=== PATIENT | female | born 1950 | race Hispanic/Latino ===

== ENCOUNTER 2016-08-28 18:35 | Emergency (ER) | payer MEDICARE, OTHER ==
[2016-08-28 18:40] VITALS: PULSE 83; RESP 16; TEMP 97; O2SAT 100
[2016-08-28] MEDS ORDERED: TDAP Vaccine 0.5 mL Syr IM ONE (19:08)
--- NOTE | 2016-08-28 19:11 | ED PDOC ---
HPI: Trauma/Fall - HPI Time Seen by Provider: 08/28/16 18:40 Chief Complaint (Nursing): Trauma Chief Complaint (Provider): fall History Per: Patient History/Exam Limitations: no limitations Injury Occurred (Timing): Just Before Arrival Additional Complaint(s): Ewa Hurtado is a 66 year old female who presents to the ED with complaints of facial pain and abrasion s/p trip and fall prior to arrival. Pt reports she was walking in her backyard and tripped on the pavement falling face first. Patient denies dizziness or syncope prior to fall. Pt denies any loss of consciousness. No associated dizziness, nausea, vomiting, vision changes since time of fall. Pt reports pain to the nasal bridge with abrasion. Pt is unsure of last tetanus vaccine. PMD: Augusto Mccarthy MD Past Medical History Reviewed: Historical Data, Nursing Documentation, Vital Signs Vital Signs: Last Vital Signs Temp 97.0 F L 08/28/16 18:37 Pulse 83 08/28/16 18:37 Resp 16 08/28/16 18:37 BP 150/78 08/28/16 20:42 Pulse Ox 100 08/28/16 21:22 - Medical History PMH: Hypercholesterolemia - Surgical History Surgical History: No Surg Hx - Family History Family History: States: No Known Family Hx - Living Arrangements Living Arrangements: With Family - Social History Current smoker - smoking cessation education provided: No Alcohol: None Drugs: Denies - Allergies Allergies/Adverse Reactions: Allergies Allergy/AdvReac Type Severity Reaction Status Date / Time No Known Allergies Allergy Verified 08/28/16 19:08 Review of Systems ROS Statement: Except As Marked, All Systems Reviewed And Found Negative Eyes: Negative for: Vision Change Cardiovascular: Negative for: Chest Pain Respiratory: Negative for: Shortness of Breath Gastrointestinal: Negative for: Nausea, Vomiting Musculoskeletal: Negative for: Neck Pain, Back Pain Skin: Positive for: Other (facial abrasion) Neurological: Positive for: Other (facial and head injury with no LOC). Negative for: Headache Physical Exam - Reviewed Nursing Documentation Reviewed: Yes Vital Signs Reviewed: Yes - Physical Exam Appears: Positive for: Well, Non-toxic, No Acute Distress Head Exam: Positive for: ATRAUMATIC, NORMAL INSPECTION, NORMOCEPHALIC Skin: Positive for: Normal Color, Warm, Dry Eye Exam: Positive for: Normal appearance, EOMI, PERRL, Periorbital tenderness ( mild bilaterally with no palpable bony deformity). Negative for: Nystagmus, Conjunctival injection ENT: Positive for: Other (1 cm superficial abrasion to proximal nasal bridge with surrounding tenderness and swelling) Neck: Positive for: Painless ROM Cardiovascular/Chest: Positive for: Regular Rate, Rhythm Respiratory: Positive for: Normal Breath Sounds Back: Negative for: L CVA Tenderness, R CVA Tenderness, Vertebral Tenderness Extremity: Positive for: Normal ROM. Negative for: Pedal Edema Neurologic/Psych: Positive for: Alert, Oriented, Gait (steady) - ECG O2 Sat by Pulse Oximetry: 100 (RA) Pulse Ox Interpretation: Normal - Other Rad CT head and facial bones X-Ray: Read By Radiologist X-Ray Interpretation: no intracranial pathology, no facial fracture Medical Decision Making Medical Decision Makin66 year old with head and facial injury s/p trip and fall, No LOC. Initial Plan: * CT head w/o contrast * CT maxillofacial w/o contrast * Tetanus booster * Pain meds declined Patient aware of CT results, all questions answered. Procedure note: Abrasion to the proximal nasal bridge was cleansed with normal saline and Betadine, Dermabond was used to approximate wound edges, good wound approximation was achieved, closure was reinforced with Steri-Strips. Neuro/ vascular intact status post placement of Steri-Strips. Procedure tolerated well by patient with no complications. Patient was given wound care instructions. Advised Tylenol as needed for pain. Patient was advised to follow-up in one to 2 days with primary doctor and is aware she can return to ED any time if acutely worse. Scribe Attestation: Documented by Gilda Funes, acting as a scribe for Lisa Baker PA-C. Provider Scribe Attestation: All medical record entries made by the Scribe were at my direction and personally dictated by me. I have reviewed the chart and agree that the record accurately reflects my personal performance of the history, physical exam, medical decision making, and the department course for this patient. I have also personally directed, reviewed, and agree with the discharge instructions and disposition. Disposition - Clinical Impression Clinical Impression: Facial contusion, Facial abrasion, Need for tetanus booster, Head injury - Patient ED Disposition Is Patient to be Admitted: No Counseled Patient/Family Regarding: Studies Performed, Diagnosis, Need For Followup - Disposition Referrals: Augusto Mccarthy MD [Staff Provider] - Disposition: Routine/Home Disposition Time: 20:40 Condition: STABLE Additional Instructions: Keep wound clean and dry, allow Steri-Strips and glue to flake off on their own. Tylenol for pain as needed. Ice affected areas much as possible. Follow-up in one to 2 days with primary doctor or return to ED at any time if acutely worse. Instructions: Head Injury (ED), Abrasion (ED), Facial Contusion (ED)
--- NOTE | 2016-08-28 20:15 | CT ---
EXAM: CT Head Without Intravenous Contrast CLINICAL HISTORY: 66 years old, female; Injury or trauma; Fall; Initial encounter; Concussion / head injury; Injury date: 08-28-2016; Additional info: Trauma. Patient tripped and fell in her backyard TECHNIQUE: Axial computed tomography images of the head/brain without intravenous contrast. Coronal and sagittal reformatted images were created and reviewed. EXAM DATE/TIME: 08/28/2016 7:08 PM COMPARISON: There are no prior studies for comparison. FINDINGS: Brain: Ventricles are normal in size and configuration. There is no midline shift. There are no intra-axial or extra-axial mass lesions or areas of hemorrhage. There are no abnormal fluid collections. Vega-white differentiation is maintained. Ventricles: See above. Bones: Cranial vault is intact. Soft tissues: unremarkable Sinuses: There is no acute sinusitis. Ears and mastoids: Middle ears and mastoids are unremarkable Orbits: Orbital contents are unremarkable. IMPRESSION: No acute intracranial abnormality
--- NOTE | 2016-08-28 20:20 | CT ---
EXAM: CT Maxillofacial Without Intravenous Contrast CLINICAL HISTORY: 66 years old, female; Injury or trauma; Fall; Initial encounter; Blunt trauma (contusions or hematomas); Nose; Injury date: 08-28-2016; Injury details: Patient tripped and fell in her yard fell on concrete TECHNIQUE: Axial computed tomography images of the face without intravenous contrast. Coronal and sagittal reformatted images were created and reviewed. EXAM DATE/TIME: 08/28/2016 7:08 PM COMPARISON: There are no prior studies for comparison. FINDINGS: Superficial soft tissues: There is minimal right frontal soft tissue swelling. Bony structures: There no facial bone fractures. There are degenerative changes in the upper cervical spine Dental: Streak artifact from dental fillings degrades image quality. Brain: No acute abnormalities are seen in visualized portion of the brain. Ears and mastoids: Middle ears and mastoids are well-aerated. Orbits: Orbital contents are unremarkable. Sinuses: There is no acute sinusitis. There is mild mucoperiosteal thickening in the ethmoid sinuses. Deep soft tissues: There are no facial masses. Soft tissue planes are symmetric. Airway: Airway is unremarkable. IMPRESSION: No facial bone fracture
[2016-08-28 20:45] VITALS: BP 150/78
== END 2016-08-28 20:42 | disposition home or self-care (01) ==
LOC: H.ER 18:35
DX: S00.83XA Contusion of other part of head, initial encounter (principal); W01.0XXA Fall on same level from slipping, tripping and stumbling without subsequent striking against object, initial encounter; Y93.01 Activity, walking, marching and hiking; Y92.007 Garden or yard of unspecified non-institutional (private) residence as the place of occurrence of the external cause; Z23 Encounter for immunization

== ENCOUNTER 2018-03-28 13:31 | Emergency (ER) | payer MEDICARE ==
[2018-03-28 13:46] VITALS: RESP 18
--- NOTE | 2018-03-28 13:59 | ED PDOC ---
HPI: Trauma/Fall - HPI Time Seen by Provider: 03/28/18 13:41 Chief Complaint (Nursing): Trauma Chief Complaint (Provider): head and upper back injury History Per: Patient History/Exam Limitations: no limitations Onset/Duration Of Symptoms: Hrs (x1 prior to arrival) Associated Symptoms: denies: Dizziness, LOC Additional Complaint(s): Ewa Garcia is a 67 year old female, with no significant past medical history, who presents to the emergency department via EMS for evaluation of a head injury and upper back pain s/p fall onset x1 hr prior to arrival. Patient states she was on the table cleaning when she lost her balance and hit her head and upper back. She denies any dizziness, LOC or illness prior to fall. No other injuries or medical complaints. Patient is not taking blood thinner medications. PMD: None provided. Past Medical History Reviewed: Historical Data, Nursing Documentation, Vital Signs Vital Signs: Last Vital Signs Temp 97.8 F 03/28/18 13:43 Pulse 75 03/28/18 13:43 Resp 18 03/28/18 13:43 BP 160/89 H 03/28/18 13:43 Pulse Ox 98 03/28/18 13:43 - Medical History PMH: Hypercholesterolemia - Surgical History Surgical History: No Surg Hx - Family History Family History: States: Unknown Family Hx - Home Medications Home Medications: Ambulatory Orders Medication Instructions Recorded RX: Naproxen 375 mg PO Q8 PRN #21 tablet 03/28/18 - Allergies Allergies/Adverse Reactions: Allergies Allergy/AdvReac Type Severity Reaction Status Date / Time No Known Allergies Allergy Verified 03/28/18 13:43 Review of Systems ROS Statement: Except As Marked, All Systems Reviewed And Found Negative Musculoskeletal: Positive for: Back Pain (upper) Skin: Positive for: Other (head injury) Neurological: Negative for: Dizziness, Other (LOC) Physical Exam - Reviewed Nursing Documentation Reviewed: Yes Vital Signs Reviewed: Yes - Physical Exam Appears: Positive for: No Acute Distress Head Exam: Positive for: NORMAL INSPECTION, NORMOCEPHALIC. Negative for: ATRAUMATIC (Mild swelling noted to posterior aspect of scalp) Skin: Positive for: Normal Color, Warm, Dry Eye Exam: Positive for: Normal appearance, EOMI, PERRL ENT: Positive for: Normal ENT Inspection Neck: Positive for: Normal (No C-Spine tenderness), Painless ROM Cardiovascular/Chest: Positive for: Regular Rate, Rhythm. Negative for: Murmur Respiratory: Positive for: Normal Breath Sounds. Negative for: Respiratory Distress Gastrointestinal/Abdominal: Positive for: Normal Exam, Soft. Negative for: Tenderness, Guarding, Rebound Back: Positive for: Normal Inspection, Other (tenderness noted on parathoracic vertebrae, approximately T4-T5. ) Extremity: Positive for: Normal ROM (upper and lower extremities). Negative for: Tenderness, Deformity, Swelling Neurologic/Psych: Positive for: Alert, Oriented. Negative for: Motor/Sensory Deficits - ECG O2 Sat by Pulse Oximetry: 98 (RA) Pulse Ox Interpretation: Normal Medical Decision Making Medical Decision Making: Time: 13:41 Initial Impression: head injury, upper back pain s/p fall Initial Plan: --Head w/o contrast [CT] --Dorsal (Thoracic) Spine [RAD] --Reevaluation 14:[address] FINDINGS: HEMORRHAGE: No intracranial hemorrhage. BRAIN: No mass effect or cortical edema is appreciated. Subtle white matter lucency is scattered throughout the cerebrum suggestive of chronic microangiopathy, particularly in the subcortical and centrum semiovale white matter distribution bilaterally. No suspicious extra-axial collection identified. VENTRICLES: Unremarkable. No hydrocephalus. CALVARIUM: Unremarkable. PARANASAL SINUSES: Unremarkable as visualized. No significant inflammatory changes. MASTOID AIR CELLS: Unremarkable as visualized. No inflammatory changes. OTHER FINDINGS: None. IMPRESSION: Mild age related neuro degenerative changes are appreciated which appear age- appropriate. No mass effect or intracranial hemorrhage. No cortical edema. Follow-up CT or MRI are available if clinically warranted. Thoracic Spine X-Ray FINDINGS: BONES: No spondylolisthesis although a moderate kyphotic deformity upper thoracic spine is appreciated without gross compression fracture evident. A mild T4 compression fracture may be chronic but is ultimately indeterminate in age. No adequate comparison exists at this time. DISC SPACES: Mild multilevel thoracic spondylosis appreciate diffusely come predominately at upper and mid thoracic levels. SOFT TISSUES: Normal. OTHER FINDINGS: None. IMPRESSION: Kyphotic deformity with anterior wedge compression fracture of T4 which appears mild but is of indeterminate age. Multilevel spondylosis appears mild. No spondylolisthesis. No destructive bony lesion appreciable. 16:[address] FINDINGS: VERTEBRAE: Normal alignment with hyper kyphotic deformity reiterated the only mild in severity. Lucent changes at T3 and and T7 as well as T9 may reflect benign hemangiomas. MRI can confirm on an elective basis. No definitive compression fracture appreciated throughout the examination including C4 which was suspected in the radiograph series but is not confirmed. DISCS/SPINAL CANAL/NEURAL FORAMINA: Multilevel spondylosis anterior and mild and primarily affects upper and mid thoracic intervertebral discs levels with no posterior osteophytic ridging appreciated throughout. No bony central canal or neural foraminal stenosis is appreciated there is no gross disc herniation appreciated throughout the study. MRI can be utilized for greater evaluation of the intervertebral disc spaces as needed.. PARASPINAL SOFT TISSUES: Unremarkable. OTHER FINDINGS: Unremarkable. IMPRESSION: No definitive acute fracture appreciable. No spondylolisthesis. Mild hyper kyphotic deformity is likely osteoporosis related. No bony central canal or neural foraminal stenosis throughout. Lucencies at T3, T7 and T9 vertebral bodies may reflect benign hemangiomas. This can be confirmed by thoracic spine MRI without contrast on elective basis. Scribe Attestation: Documented by Cecil Meyer, acting as a scribe for Jeremiah Valdez PA-C Provider Scribe Attestation: All medical record entries made by the Scribe were at my direction and personally dictated by me. I have reviewed the chart and agree that the record accurately reflects my personal performance of the history, physical exam, medical decision making, and the department course for this patient. I have also personally directed, reviewed, and agree with the discharge instructions and disposition. Disposition - Clinical Impression Clinical Impression: Back contusion, Head injury - Patient ED Disposition Is Patient to be Admitted: No - Disposition Disposition: Routine/Home Disposition Time: 16:00 Condition: FAIR Prescriptions: RX: Naproxen 375 mg PO Q8 PRN #21 tablet PRN Reason: Pain, Moderate (4-7) Instructions: Closed Head Injury (DC), Contusion (DC)
--- NOTE | 2018-03-28 14:59 | CT ---
Date of service: 03/28/2018 PROCEDURE: CT HEAD WITHOUT CONTRAST. HISTORY: head injury COMPARISON: None available. TECHNIQUE: Axial computed tomography images were obtained through the head/brain without intravenous contrast. Radiation dose: Total exam DLP = 789.29 mGy-cm. This CT exam was performed using one or more of the following dose reduction techniques: Automated exposure control, adjustment of the mA and/or kV according to patient size, and/or use of iterative reconstruction technique. FINDINGS: HEMORRHAGE: No intracranial hemorrhage. BRAIN: No mass effect or cortical edema is appreciated. Subtle white matter lucency is scattered throughout the cerebrum suggestive of chronic microangiopathy, particularly in the subcortical and centrum semiovale white matter distribution bilaterally. No suspicious extra-axial collection identified. VENTRICLES: Unremarkable. No hydrocephalus. CALVARIUM: Unremarkable. PARANASAL SINUSES: Unremarkable as visualized. No significant inflammatory changes. MASTOID AIR CELLS: Unremarkable as visualized. No inflammatory changes. OTHER FINDINGS: None. IMPRESSION: Mild age related neuro degenerative changes are appreciated which appear age-appropriate. No mass effect or intracranial hemorrhage. No cortical edema. Follow-up CT or MRI are available if clinically warranted.
--- NOTE | 2018-03-28 15:50 | RAD ---
Date of service: 03/28/2018 HISTORY: fall thoracic injury COMPARISON: No prior. FINDINGS: BONES: No spondylolisthesis although a moderate kyphotic deformity upper thoracic spine is appreciated without gross compression fracture evident. A mild T4 compression fracture may be chronic but is ultimately indeterminate in age. No adequate comparison exists at this time. DISC SPACES: Mild multilevel thoracic spondylosis appreciate diffusely come predominately at upper and mid thoracic levels. SOFT TISSUES: Normal. OTHER FINDINGS: None. IMPRESSION: Kyphotic deformity with anterior wedge compression fracture of T4 which appears mild but is of indeterminate age. Multilevel spondylosis appears mild. No spondylolisthesis. No destructive bony lesion appreciable.
--- NOTE | 2018-03-28 16:04 | CT ---
Date of service: 03/28/2018 PROCEDURE: CT Thoracic Spine without contrast HISTORY: injury to thoracic vertebrae COMPARISON: Thoracic spine radiographs 03/28/2018. TECHNIQUE: Axial computed tomography images were obtained of the thoracic spine without intravenous contrast. Coronal and sagittal reformatted images were created and reviewed. Radiation dose: Total exam DLP = 453.8 mGy-cm. This CT exam was performed using one or more of the following dose reduction techniques: Automated exposure control, adjustment of the mA and/or kV according to patient size, and/or use of iterative reconstruction technique. FINDINGS: VERTEBRAE: Normal alignment with hyper kyphotic deformity reiterated the only mild in severity. Lucent changes at T3 and and T7 as well as T9 may reflect benign hemangiomas. MRI can confirm on an elective basis. No definitive compression fracture appreciated throughout the examination including C4 which was suspected in the radiograph series but is not confirmed. DISCS/SPINAL CANAL/NEURAL FORAMINA: Multilevel spondylosis anterior and mild and primarily affects upper and mid thoracic intervertebral discs levels with no posterior osteophytic ridging appreciated throughout. No bony central canal or neural foraminal stenosis is appreciated there is no gross disc herniation appreciated throughout the study. MRI can be utilized for greater evaluation of the intervertebral disc spaces as needed.. PARASPINAL SOFT TISSUES: Unremarkable. OTHER FINDINGS: Unremarkable. IMPRESSION: No definitive acute fracture appreciable. No spondylolisthesis. Mild hyper kyphotic deformity is likely osteoporosis related. No bony central canal or neural foraminal stenosis throughout. Lucencies at T3, T7 and T9 vertebral bodies may reflect benign hemangiomas. This can be confirmed by thoracic spine MRI without contrast on elective basis.
[2018-03-28 16:16] VITALS: BP 159/81; PULSE 71; TEMP 98.1
[2018-03-28 16:28] VITALS: O2SAT 98
== END 2018-03-28 16:18 | disposition home or self-care (01) ==
LOC: H.ER 13:31
DX: S09.90XA Unspecified injury of head, initial encounter (principal); M54.6 Pain in thoracic spine; S20.229A Contusion of unspecified back wall of thorax, initial encounter; W08.XXXA Fall from other furniture, initial encounter; Y93.E9 Activity, other interior property and clothing maintenance

== ENCOUNTER 2018-08-05 17:07 | Emergency (ER) | payer MEDICARE, SELFPAY ==
[2018-08-05 17:11] VITALS: BP 169/78; PULSE 101; RESP 16; TEMP 98.1; O2SAT 98
[2018-08-05] MEDS ORDERED: Lidocaine 1% (10 ml) Inj INFIL ONE (17:31)
[2018-08-05] MEDS ORDERED: Lidocaine 1% Inj (20ml) ONE (17:43)
--- NOTE | 2018-08-05 18:08 | ED PDOC ---
HPI: Trauma/Fall - HPI Time Seen by Provider: 08/05/18 17:10 Chief Complaint (Nursing): Abnormal Skin Integrity Chief Complaint (Provider): Facial Injury History Per: Patient History/Exam Limitations: no limitations Onset/Duration Of Symptoms: Mins (x30) Additional Complaint(s): Patient is a 68 y/o female with a PMHx of hypercholesterolemia who was crossing the street 30 minutes prior to arrival when she stepped off the sidewalk and landed face forward and sustained injury to her nose and a laceration to her lip. Patient also complains of right knee pain. Patient denies loss of consciousness. PCP: Dr. Gigi Ventura Past Medical History Reviewed: Historical Data, Nursing Documentation, Vital Signs Vital Signs: Last Vital Signs Temp 98.1 F 08/05/18 17:10 Pulse 101 H 08/05/18 17:10 Resp 16 08/05/18 17:10 BP 169/78 H 08/05/18 17:10 Pulse Ox 98 08/05/18 17:10 - Medical History PMH: Hypercholesterolemia - Surgical History Surgical History: No Surg Hx - Family History Family History: States: Unknown Family Hx - Home Medications Home Medications: Ambulatory Orders Medication Instructions Recorded Naproxen 375 mg PO Q8 PRN #21 tablet 03/28/18 Amoxicillin/Clavulanate [Augmentin 1 tab PO BID #20 tab 08/05/18 500 MG-125 MG] - Allergies Allergies/Adverse Reactions: Allergies Allergy/AdvReac Type Severity Reaction Status Date / Time No Known Allergies Allergy Verified 08/05/18 17:10 Review of Systems ROS Statement: Except As Marked, All Systems Reviewed And Found Negative ENT: Positive for: Nose Pain, Other (laceration to lip) Musculoskeletal: Positive for: Other (right knee pain) Neurological: Negative for: Other (loss of consciousness) Physical Exam - Reviewed Nursing Documentation Reviewed: Yes Vital Signs Reviewed: Yes - Physical Exam Appears: Positive for: No Acute Distress Head Exam: Positive for: ATRAUMATIC, NORMAL INSPECTION, NORMOCEPHALIC (with superficial abrasion on right side of forehead) ENT: Positive for: Normal ENT Inspection (dentition intact; mild tenderness to nasal bridge; no septal hematoma bilaterally), Other (superficial abrasion on right side of nose; 0.5 cm superficial laceration on middle upper inner lip that does not cross into vermilion border ) Extremity: Positive for: Normal ROM (actively to right knee), Other (Right knee superficial abrasion to anterior surface). Negative for: Deformity, Swelling Neurological/Psych: Positive for: Alert, Oriented (x3) - ECG O2 Sat by Pulse Oximetry: 98 (RA) Pulse Ox Interpretation: Normal Medical Decision Making Medical Decision Making: Time: 1730 Impression: Head and Knee Injury; Lip Laceration Plan: CT Head w/o Contrast CT Maxillofacial w/o Contrast Knee 3 views RT [Rad] Lidocaine Tibia Fibula Right [Rad] Patient offered plastic surgeon but patient and family refused. Time: 1827 CT Head FINDINGS: HEMORRHAGE: No intracranial hemorrhage. BRAIN: No mass effect or edema. Vega-white matter differentiation appears intact. Please note that MRI with diffusion imaging is more sensitive in the detection of acute ischemic event. VENTRICLES: No hydrocephalus. CALVARIUM: Unremarkable. PARANASAL SINUSES: Unremarkable as visualized. No significant inflammatory changes. MASTOID AIR CELLS: Unremarkable as visualized. No inflammatory changes. OTHER FINDINGS: None. IMPRESSION: No acute intracranial pathology identified. Time: 1853 CT Maxillofacial Findings: Streak artifact from dental hardware. Mildly displaced right and probable nondisplaced left nasal bone fracture deformities. Associated soft tissue sw elling. The remainder of the facial bones appear unremarkable without acute displaced fracture. The orbits appear unremarkable. The temporomandibular joints appear located. The mastoid air cells appear clear. The paranasal sinuses appear clear. The visualized brain appears unremarkable. The soft tissues appear unremarkable. Degenerative changes of the included cervical spine. Impression: Mildly displaced right and probable nondisplaced left nasal bone fracture deformities. Associated soft tissue swelling. Scribe Attestation: Documented by Dwight Griffiths, acting as a scribe Rojelio Baldwin PA-C. Provider Scribe Attestation: All medical record entries made by the Scribe were at my direction and personally dictated by me. I have reviewed the chart and agree that the record accurately reflects my personal performance of the history, physical exam, medical decision making, and the department course for this patient. I have also personally directed, reviewed, and agree with the discharge instructions and disposition. Procedures - Time-Out Type of Procedure: Laceration repari Site of Procedure: Upper lip Correct Patient (with visual ID + MR# on ID Band): Yes Correct Procedure: Yes Correct Site Marked: Yes PA/Tech: Denny ROY - Laceration/Wound Repair Laceration Wound Length (cm): 0.5 Wound's Depth, Shape: superficial, linear Wound Explored: clean Irrigated w/ Saline (ccs): 50 Betadine Prep?: Yes Anesthesia: 1% Lidocaine Volume Anesthetic (ccs): 2 Wound Debrided: minimal Wound Repaired With: Sutures Suture Size/Type: 6:0, nylon Number of Sutures: 3 Wound Complexity: Simple Disposition - Clinical Impression Clinical Impression: Head injury, Nasal fracture, Lip laceration - Patient ED Disposition Is Patient to be Admitted: No - Disposition Referrals: Gigi Ventura MD [Family Provider] - Venkat Guo MD [Staff Provider] - Disposition: Routine/Home Disposition Time: 19:05 Condition: STABLE Additional Instructions: FOLLOW UP WITH DR. GUO (ENT) OR DR. VENTURA FOR FURTHER EVALUATION RETURN TO ED IMMEDIATELY IF SYMPTOMS WORSEN ROLANDO PEREZ, thank you for letting us take care of you today. Your provider was Sergio Colon III, DO and you were treated for FALL: FACIAL INJURY. The emergency medical care you received today was directed at your acute symptoms. If you were prescribed any medication, please fill it and take as directed. It may take several days for your symptoms to resolve. Return to the Emergency Department if your symptoms worsen, do not improve, or if you have any other problems. Please contact your doctor or call one of the physicians/clinics you have been referred to that are listed on the Patient Visit Information form that is included in your discharge packet. Bring any paperwork you were given at discharge with you along with any medications you are taking to your follow up visit. Our treatment cannot replace ongoing medical care by a primary care provider outside of the emergency department. Thank you for allowing the [facility] team to be part of your care today. If you had an X-Ray or CT scan: A Radiologist will review the ED reading if any change in treatment is needed we will contact you. If you had a blood, urine, or wound culture: It will take several days for the results, if any change in treatment is needed we will contact you. If you had an STI test: It will take 48 hours for the results. Please call after 1 week if you have not heard back. Prescriptions: Amoxicillin/Clavulanate [Augmentin 500 MG-125 MG] 1 tab PO BID #20 tab Instructions: Wound Care (DC), Laceration Repair With Stitches (DC), Minor Head Injury (DC), Nose Fracture (DC) Forms: [employer] (Hungarian) Print Language: FRISIAN
--- NOTE | 2018-08-05 18:32 | CT ---
Date of service: 08/05/2018 PROCEDURE: CT HEAD WITHOUT CONTRAST. HISTORY: trauma COMPARISON: None available. TECHNIQUE: Axial computed tomography images were obtained through the head/brain without intravenous contrast. Radiation dose: Total exam DLP = 740.54 mGy-cm. This CT exam was performed using one or more of the following dose reduction techniques: Automated exposure control, adjustment of the mA and/or kV according to patient size, and/or use of iterative reconstruction technique. FINDINGS: HEMORRHAGE: No intracranial hemorrhage. BRAIN: No mass effect or edema. Vega-white matter differentiation appears intact. Please note that MRI with diffusion imaging is more sensitive in the detection of acute ischemic event. VENTRICLES: No hydrocephalus. CALVARIUM: Unremarkable. PARANASAL SINUSES: Unremarkable as visualized. No significant inflammatory changes. MASTOID AIR CELLS: Unremarkable as visualized. No inflammatory changes. OTHER FINDINGS: None. IMPRESSION: No acute intracranial pathology identified.
--- NOTE | 2018-08-05 18:57 | CT ---
Date of service: 2018-08-05 18:14:39 CT maxillofacial bones without IV contrast Indication: trauma Comparison: Noncontrast maxillofacial CT performed 4197 Technique: Axial computed tomography images were obtained of the maxillofacial bones without the use of intravenous contrast. Coronal and sagittal reformatted images were generated and reviewed. This CT exam was performed using 1 or more of the following dose reduction techniques: Automated exposure control, adjustment of the MAA and/or kV according to patient size, and/or use of iterative reconstruction technique. Radiation dose: Total exam DLP = 759.58 mGy-cm. Findings: Streak artifact from dental hardware. Mildly displaced right and probable nondisplaced left nasal bone fracture deformities. Associated soft tissue swelling. The remainder of the facial bones appear unremarkable without acute displaced fracture. The orbits appear unremarkable. The temporomandibular joints appear located. The mastoid air cells appear clear. The paranasal sinuses appear clear. The visualized brain appears unremarkable. The soft tissues appear unremarkable. Degenerative changes of the included cervical spine. Impression: Mildly displaced right and probable nondisplaced left nasal bone fracture deformities. Associated soft tissue swelling.
--- NOTE | 2018-08-06 11:29 | RAD ---
Date of service: 08/05/2018 PROCEDURE: Radiographs of the right tibia and fibula. HISTORY: trauma COMPARISON: None available TECHNIQUE: Frontal and lateral views obtained. 2 views obtained. FINDINGS: BONES: No fracture or destructive lesion. JOINT SPACES: Unremarkable. OTHER FINDINGS: None. IMPRESSION: Unremarkable radiographs of the right tibia and fibula.
--- NOTE | 2018-08-06 11:29 | RAD ---
Date of service: 08/05/2018 PROCEDURE: Right Knee Radiographs. HISTORY: trauma COMPARISON: None. TECHNIQUE: 2 views obtained. FINDINGS: BONES: Normal. No fracture. JOINTS: Normal. No osteoarthritis. JOINT EFFUSION: None. OTHER FINDINGS: None. IMPRESSION: Normal radiographs of the right knee.
== END 2018-08-05 19:40 | disposition home or self-care (01) ==
LOC: H.ER 17:07
DX: M25.561 Pain in right knee (principal); S09.90XA Unspecified injury of head, initial encounter; S02.2XXA Fracture of nasal bones, initial encounter for closed fracture; S01.511A Laceration without foreign body of lip, initial encounter